=== PATIENT | female | born 1990 | race Caucasian/White ===

== ENCOUNTER 2017-10-29 16:48 | Emergency (ER) | payer OTHER ==
[~2017-10-29] VITALS: Ht 172.7 cm; Wt 111.3 kg
[~2017-10-29 16:48] MED LIST: ALEVE220 M2; BACTRIM,SEPT1 TABLET PO; CELEXA20 MG PO; DESYREL100 MG PO; MACRODANTIN100 MG PO; MOTRIN IB200 MG; MOTRIN800 MG PO; NAPROSYN500 MG PO; NOHOMEMEDS; PERCOCET 5/31 TABLET PO; TRAMADOL HCL50 MG PO; TRAZODONE HCL50 MG PO; TYLENOL EXTRA500 MG; ULTRAM50 MG PO; VALIUM5 MG PO; ZOFRAN4 MG PO
[2017-10-29 17:26] LABS: HEMATOCRIT 41.3 % (36.0-46.0); HEMOGLOBIN 14.1 G/DL (11.9-15.5); MCH 30.7 PG (29.0-34.0); MCHC 34.1 G/DL (30.0-36.0); MCV 89.8 FL (83-99); PLATELET COUNT 249 K/uL (156-360); RBC DIS.WIDTH-CV 11.9 % (11.8-14.6); RBC DIS.WIDTH-SD 38.6 % (39-53); WHITE BLOOD COUNT 10.2 K/uL (4.1-10.2)
[2017-10-29 17:38] LABS: ALBUMIN 4.3 g/dL (3.2-4.8); CHLORIDE 102 mEq/L (99-109); POTASSIUM 4.1 mEq/L (3.7-5.4); SODIUM 140 mEq/L (136-147)
[2017-10-29 17:41] LABS: GLUCOSE 118 mg/dL (70-99); TOTAL PROTEIN 6.9 g/dL (6.4-8.3)
[2017-10-29 17:42] LABS: TOTAL BILIRUBIN 0.7 mg/dL (0.0-1.0)
[2017-10-29 17:44] LABS: ALKALINE PHOSPHATASE 69 IU/L (3-129); CREATININE 0.8 mg/dL (0.6-1.3); GFR ESTIMATE (CALCULATED) > 59 mL/min/
[2017-10-29 17:45] LABS: UREA NITROGEN (BUN) 8 mg/dL (9-23)
[2017-10-29 17:46] LABS: AST (GOT) 17 IU/L (2-34)
[2017-10-29 17:47] LABS: ALT (GPT) 20 IU/L (3-49)
[2017-10-29 17:48] LABS: LIPASE 12 U/L (1.0-51.0)
[2017-10-29 17:53] LABS: QUANTITATIVE HCG < 4.0 MIU/ML
[2017-10-29 20:06] LABS: APPEARANCE SL.HAZY ((CLEAR)); BILIRUBIN NEGATIVE; BLOOD NEGATIVE; COLOR YELLOW ((YELLOW)); GLUCOSE (STRIP) NEGATIVE; KETONES NEGATIVE; LEUKOCYTES SMALL; NITRITE NEGATIVE; PROTEIN (STRIP) NEGATIVE; SPECIFIC GRAVITY 1.013 (1.000-1.030); UROBILINOGEN 0.2 MG/DL (0.2-1.0)
[2017-10-29 20:21] LABS: EPITHELIAL CELLS 1+ /HPF; MUCUS NONE SEEN /LPF; RED BLOOD CELLS 0-5 /HPF (0-5); UCUL ADDED? NO; WHITE BLOOD CELLS 0-5 /HPF (0-5)
[2017-10-29 20:38] LABS: BACTERIA 1+ /HPF
[2017-10-29] MEDS ORDERED: KEFLEX500 MG PO (22:02)
[2017-10-29] MEDS ORDERED: DIFLUCAN150 MG PO (22:19)
[2017-10-29 22:24] VITALS: BP 149/99
== END 2017-10-29 22:25 | disposition home or self-care (01) ==
LOC: EME 16:48
DX: R10.11 Right upper quadrant pain (principal); N39.0 Urinary tract infection, site not specified; R16.0 Hepatomegaly, not elsewhere classified; F32.9 Major depressive disorder, single episode, unspecified; Z88.5 Allergy status to narcotic agent; Z88.0 Allergy status to penicillin; F17.200 Nicotine dependence, unspecified, uncomplicated
CPT/HCPCS: 76705; 80053; 81003; 83690; 84702; 85027; 93005; 99281; 99283; J1885

== ENCOUNTER 2018-01-29 11:40 | Emergency (ER) | payer OTHER ==
[~2018-01-29] VITALS: Ht 172.7 cm; Wt 113.4 kg
[~2018-01-29 11:40] MED LIST changes: +DIFLUCAN150 MG PO; +KEFLEX500 MG PO
[2018-01-29 12:13] LABS: APPEARANCE SL.HAZY ((CLEAR)); BILIRUBIN NEGATIVE; BLOOD NEGATIVE; COLOR YELLOW ((YELLOW)); GLUCOSE (STRIP) NEGATIVE; KETONES NEGATIVE; LEUKOCYTES MODERATE; NITRITE NEGATIVE; PROTEIN (STRIP) NEGATIVE; SPECIFIC GRAVITY 1.018 (1.000-1.030); UROBILINOGEN 0.2 MG/DL (0.2-1.0)
[2018-01-29 12:17] LABS: BACTERIA NONE SEEN /HPF; EPITHELIAL CELLS RARE /HPF; MUCUS TRACE /LPF; UCUL ADDED? NO; WHITE BLOOD CELLS 0-5 /HPF (0-5)
[2018-01-29 12:45] LABS: HEMATOCRIT 41.7 % (36.0-46.0); HEMOGLOBIN 14.1 G/DL (11.9-15.5); MCHC 33.8 G/DL (30.0-36.0); MCV 88.7 FL (83-99); PLATELET COUNT 269 K/uL (156-360); RBC DIS.WIDTH-SD 39.2 % (39-53); WHITE BLOOD COUNT 10.9 K/uL (4.1-10.2)
[2018-01-29 12:53] LABS: CHLORIDE 104 mEq/L (99-109); POTASSIUM 4.6 mEq/L (3.7-5.4); SODIUM 140 mEq/L (136-147)
[2018-01-29 12:55] LABS: GLUCOSE 99 mg/dL (70-99)
[2018-01-29 12:59] LABS: CREATININE 0.8 mg/dL (0.6-1.3); GFR ESTIMATE (CALCULATED) > 59 mL/min/
[2018-01-29 13:00] LABS: UREA NITROGEN (BUN) 10 mg/dL (9-23)
[2018-01-29 13:10] LABS: QUANTITATIVE HCG < 4.0 MIU/ML
[2018-01-29 13:32] LABS: ALBUMIN 4.6 g/dL (3.2-4.8)
[2018-01-29 13:34] LABS: TOTAL PROTEIN 7.5 g/dL (6.4-8.3)
[2018-01-29 13:36] LABS: TOTAL BILIRUBIN 0.8 mg/dL (0.0-1.0)
[2018-01-29 13:37] LABS: ALKALINE PHOSPHATASE 66 IU/L (3-129)
[2018-01-29 13:40] LABS: ALT (GPT) 17 IU/L (3-49); AST (GOT) 16 IU/L (2-34); DIRECT BILIRUBIN 0.2 mg/dL (0.0-0.3)
[2018-01-29 13:41] LABS: LIPASE 11 U/L (1.0-51.0)
[2018-01-29] MEDS ORDERED: ULTRAM50 MG PO (14:30)
[2018-01-29] MEDS ORDERED: ZOFRAN4 MG PO (14:30)
[2018-01-29] MEDS ORDERED: MOTRIN600 MG PO (14:44)
[2018-01-29] MEDS ORDERED: ZANTAC150 MG PO (14:44)
[2018-01-29 15:03] VITALS: BP 142/89
== END 2018-01-29 15:03 | disposition home or self-care (01) ==
LOC: EME 11:40
DX: R10.11 Right upper quadrant pain (principal); R11.0 Nausea; M54.5 Low back pain; Z97.5 Presence of (intrauterine) contraceptive device; Z88.0 Allergy status to penicillin; F17.200 Nicotine dependence, unspecified, uncomplicated
CPT/HCPCS: 74176; 80048; 80076; 81003; 83690; 84702; 85027; 99281; 99284